=== PATIENT | male | born 1965 | race Caucasian/White ===

== ENCOUNTER → 2016-10-30 | Outpatient (CLI) | payer OTHER ==
[~2016-10-30] VITALS: Ht 195.6 cm; Wt 169.2 kg
[~2016-10-30] MED LIST: ANDROGEL75 GM TD; COQ-10100 MG PO; INVOKANA300 MG PO; LISINOPRIL-HCT1 EAC3 PO; METFORMIN HCL500 MG PO; PRAVACHOL80 MG PO; ZOLOFT50 MG PO
[2016-10-30 09:24] LABS: POINT-OF-CARE METER ID UU13113694
[2016-10-30 11:22] LABS: POINT-OF-CARE METER ID UU13113819
== END | disposition home or self-care (01) ==
LOC: AMB 08:48
PROVIDERS: Internal Medicine
PROC: 0DJD8ZZ Inspection of Lower Intestinal Tract, Via Natural or Artificial Opening Endoscopic (ICD-10-PCS; principal; 2016-10-30)
DX: Z12.11 Encounter for screening for malignant neoplasm of colon (principal); K64.9 Unspecified hemorrhoids; I10 Essential (primary) hypertension
CPT/HCPCS: 82948; B4087; J2250; J3010